=== PATIENT | female | born 1930 | race Caucasian/White ===

== ENCOUNTER 2016-07-10 12:47 | Emergency (ER) | payer OTHER ==
[~2016-07-10] VITALS: Ht 165.1 cm; Wt 65.8 kg
[~2016-07-10 12:47] MED LIST: ALEVE220 MG PO; ASPIRIN81 M1 PO; CALCIUM 600600 M1 PO; FISH OIL1000 MG PO; LOVASTATIN40 MG PO; MULTIVITAMIN1 TAB PO; NORVASC 5MG TAB5 MG PO; VITAMIN C500 M3 PO
--- NOTE | 2016-07-10 13:11 | ED DYSPNEA/ASTHMA COMPLAINT ---
History of Present Illness General Chief Complaint: Upper Respiratory Sx/Fever Stated Complaint: COUGHING X3DAYS, WORSE TODAY Source: patient Exam Limitations: no limitations Vital Signs & Intake/Output Vital Signs & Intake/Output Vital Signs Date Time Temp Pulse Resp B/P B/P Pulse O2 O2 Flow FiO2 Mean Ox Delivery Rate 07/10 1325 97 07/10 1253 99.2 41 15 122/62 97 Room Air Room Air Allergies Coded Allergies: MDX - MARELY Inhibitor (MARELY Inhibitor) (Mild, DRY COUGH 07/10/16) Per antibiotic order sheet. -- Lian 04/19/12 Reconcile Medications Amlodipine (Norvasc 5MG Tab) 5 MG TABLET 1 TAB PO DAILY HYPERTENSION ( Reported) Ascorbic Acid (Vitamin C) 500 MG TAB 1 TAB PO DAILY SUPPLEMENT (Reported) Aspirin 81 MG TAB.CHEW 1 TAB PO DAILY HEART HEALTH (Reported) Calcium Carbonate (Calcium 600) 600 MG TAB 1 TAB PO BID SUPPLEMENT (Reported) Lovastatin 40 MG TABLET 1 TAB PO DAILY CHOLESTEROL (Reported) with food Multivitamin (Multiple Vitamins) 1 EACH TABLET 1 TAB PO DAILY SUPPLEMENT ( Reported) Naproxen Sodium (Aleve) 220 MG TABLET 1 TAB PO QAM PRN ARTHRITIS (BACK) ( Reported) OMEGA-3/DHA/EPA/FISH OIL ([place]-3 Fish Oil 1,000 MG Sftg) 300 MG-1,000 MG CAPSULE 1 TAB PO DAILY SUPPLEMENT (Reported) Triage Note: PT TO ED FOR URI SYMPTOMS SINCE TUESDAY, PRODUCTIVE COUGH WITH YELLOW PHLEGM, DENIES FEVER/CHILLS, +CHEST TIGHTNESS WITH COUGH. NO ACUTE DISTRESS NOTED, O2 SAT WNL. Triage Nurses Notes Reviewed? yes HPI: Patient started with allergies last week. By Tuesday and felt like she developed a cold with a nonproductive cough. There are no fevers or chills. No dyspnea on exertion. On she began to feel chest heaviness. The heaviness is been constant. There is no radiation. There are no aggravating or mitigating factors. She rates it as 3 out of 10. This morning she coughed up yellow sputum associated comes in for evaluation. Patient denies any orthopnea. Past History Travel History Traveled to [place] past 21 day No Medical History Any Pertinent Medical History? 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 No Review of Systems Review of Systems Constitutional: Reports: no symptoms. EENTM: Reports: no symptoms. Respiratory: Reports: see HPI, cough, sputum production. Cardiovascular: Reports: see HPI, chest pain. GI: Reports: no symptoms. Genitourinary: Reports: no symptoms. Musculoskeletal: Reports: no symptoms. Skin: Reports: no symptoms. Neurological/Psychological: Reports: no symptoms. Hematologic/Endocrine: Reports: no symptoms. Immunologic/Allergic: Reports: no symptoms. All Other Systems: Reviewed and Negative Physical Exam Physical Exam General Appearance: well developed/nourished, alert, awake, anxious Head: atraumatic, normal appearance Eyes: Bilateral: PERRL, EOMI. Ears, Nose, Throat: normal pharynx, normal ENT inspection, hearing grossly normal Neck: normal inspection, supple, full range of motion Respiratory: normal breath sounds, chest non-tender, no respiratory distress, lungs clear Cardiovascular: regular rate/rhythm, normal peripheral pulses Gastrointestinal: normal bowel sounds, soft, non-tender, no organomegaly Extremities: normal inspection, normal capillary refill, normal range of motion, no edema Neurologic/Psych: no motor/sensory deficits, awake, alert, oriented x 3, normal gait, normal mood/affect Skin: intact, normal color, warm/dry Lymphatic: no anterior cervical ananya Core Measures ACS in differential dx? No Severe Sepsis Present: No Septic Shock Present: No Progress Differential Diagnosis: asthma, bronchitis, pneumonia Plan of Care: Orders Procedure Date/time Status TROPONIN LEVEL 07/10 1308 Complete COMPREHENSIVE METABOLIC PANEL 07/10 1308 Complete CBC WITHOUT DIFFERENTIAL 07/10 1308 Complete EKG 07/10 1256 Active Current Medications Sig/Debbie Start time Last Medication Dose Stop Time Status Admin Sodium Chloride 1,000 ML BOLUS ONE 07/10 1330 CAN (Normal Saline 0.9%) 07/10 1429 Laboratory Tests 07/10/16 1348: Fluid WBC Cancelled, Fld Total RBCs Counted Cancelled 07/10/16 1348: Fluid Albumin Cancelled 07/10/16 1314: Anion Gap 8, Estimated GFR > 60, BUN/Creatinine Ratio 25.0, Glucose 91, Calcium 8.6, Total Bilirubin 0.6, AST 39 H, ALT 55 H, Alkaline Phosphatase 65, Troponin I < 0.01, Total Protein 6.3, Albumin 3.8, Globulin 2.5, Albumin/ Globulin Ratio 1.5, CBC w Diff NO MAN DIFF REQ, RBC 4.48, MCV 82.5, MCH 27.5, RDW 14.9 H, MPV 10.0, Gran % 67.8, Lymphocytes % 19.6 L, Monocytes % 9.9 H, Eosinophils % 2.4, Basophils % 0.3, Absolute Granulocytes 3.6, Absolute Lymphocytes 1.0 L, Absolute Monocytes 0.5, Absolute Eosinophils 0.1, Absolute Basophils 0, PUBS MCHC 33.3 Microbiology 07/10 134 BODY FLUID: Body Fluid Culture - CAN Cancelled: Cancelled via OE: Per MD Decision 07/11 1347 BODY FLUID: Gram Stain - CAN Cancelled: Cancelled via OE: Per MD Decision Diagnostic Imaging: Viewed by Me: Radiology Read. Discussed w/RAD: Radiology Read. CXR Impression: PATIENT: CHRISTIAN EGAN PRESENT AGE: 86 PATIENT ACCOUNT NO: [id number] : 32 LOCATION: [facility] ORDERING PHYSICIAN: EDWIN LOVELACE MD SERVICE DATE: 07/10/16 EXAM TYPE: RAD - XRY-CHEST XRAY, PA AND LATERAL EXAMINATION: XR CHEST CLINICAL INFORMATION: Productive cough. Rule out pneumonia. COMPARISON: Chest x-ray of 05/22/2014, 05/21/2014. TECHNIQUE: 2 views of the chest were obtained. FINDINGS: The lungs are mildly hyperinflated. No focal consolidation, changes of congestion or pleural effusions are seen. No pneumothorax. The cardiomediastinal silhouette is stable with mild cardiomegaly. Left-sided bipolar pacemaker is in place without change in configuration compared to last study with intact-appearing leads terminating over the expected locations of the right atrium and right ventricle. The regional skeleton is intact. Mild degenerative changes are noted in the mid to lower thoracic spine. Visualized upper abdomen is unremarkable. IMPRESSION: No radiographic evidence of pneumonia. No acute pulmonary process. Mildly hyperinflated lungs. No significant interval change is noted compared to previous study. DICTATED BY: MAYO BRENNAN MD DATE/TIME DICTATED:07/10/161337 DONOR SERVICES MANAGER:MARGA DATE/TIME TRANSCRIBED:07/10/161337 CONFIDENTIAL, DO NOT COPY WITHOUT APPROPRIATE AUTHORIZATION. <Electronically signed in Other Vendor System> SIGNED BY: MAYO BRENNAN MD 07/10/16 6282 Initial ED EKG: pacemaker rhythm, nonspecific ST T wave chg Prior EKG: unchanged Departure Departure Disposition: HOME OR SELF CARE Condition: Stable Clinical Impression Primary Impression: Bronchitis Referrals: ILYA TELLEZ,MAGO Pimentel (PCP/Family) Additional Instructions: DRINK PLENTY OF FLUIDS RETURN FOR ANY CONCERNS Departure Forms: Customer Survey General Discharge Information Prescriptions: Current Visit Scripts Benzonatate (Tessalon Perle) 1 CAP PO TID PRN COUGH #30 CAP Albuterol Sulfate (Proair Hfa) 2 PUF INH Q4-6 PRN PRN BRONCHITIS #1 INHAL Critical Care Note Critical Care Note Critical Care Time: non-applicable
[2016-07-10 13:30] LABS: ABSOLUTE BASOPHIL COUNT 0 /CUMM (0.0-0.2); ABSOLUTE EOSINOPHIL COUNT 0.1 /CUMM (0.0-0.7); ABSOLUTE GRANULOCYTE CT 3.6 /CUMM (1.4-6.5); ABSOLUTE MONOCYTE COUNT 0.5 /CUMM (0.10-0.60); BASOPHIL % 0.3 % (0.0-2.0); EOSINOPHIL % 2.4 % (0-5); GRANULOCYTE % 67.8 % (42.2-75.2); MEAN CORPUSCULAR HGB 27.5 PG (27.0-31.0); MEAN CORPUSCULAR HGB CONC 33.3 G/DL (33.0-37.0); MEAN CORPUSCULAR VOLUME 82.5 FL (81.0-99.0); PLATELET COUNT 146 /CUMM (130-400); RBC DISTRIBUTION WIDTH 14.9 % (11.5-14.5); RED BLOOD CELL CT 4.48 /CUMM (4.20-5.40); WHITE BLOOD CELL COUNT 5.2 /CUMM (4.8-10.8)
--- NOTE | 2016-07-10 13:55 | RADIOLOGY REPORT ---
EXAMINATION: XR CHEST CLINICAL INFORMATION: Productive cough. Rule out pneumonia. COMPARISON: Chest x-ray of 05/22/2014, 05/21/2014. TECHNIQUE: 2 views of the chest were obtained. FINDINGS: The lungs are mildly hyperinflated. No focal consolidation, changes of congestion or pleural effusions are seen. No pneumothorax. The cardiomediastinal silhouette is stable with mild cardiomegaly. Left-sided bipolar pacemaker is in place without change in configuration compared to last study with intact-appearing leads terminating over the expected locations of the right atrium and right ventricle. The regional skeleton is intact. Mild degenerative changes are noted in the mid to lower thoracic spine. Visualized upper abdomen is unremarkable. IMPRESSION: No radiographic evidence of pneumonia. No acute pulmonary process. Mildly hyperinflated lungs. No significant interval change is noted compared to previous study.
[2016-07-10] MEDS ORDERED: PROAIR HFA8.5 GM INH (14:12)
[2016-07-10] MEDS ORDERED: TESSALON PERLE100 M1 PO (14:12)
[2016-07-10 14:22] VITALS: BP 126/84
== END 2016-07-10 14:22 ==
LOC: ERH 12:47
PROVIDERS: Emergency Medicine
DX: J40 Bronchitis, not specified as acute or chronic (principal); Z87.891 Personal history of nicotine dependence; R07.9 Chest pain, unspecified
CPT/HCPCS: 1263; 87075; 93005; 93010